=== PATIENT | male | born 1965 | race Two or more races ===

== ENCOUNTER 2021-01-10 05:00 | Day surgery (SDC) | payer OTHER | END 2021-01-10 16:00 | disposition home or self-care (01) | LOC: CIR.AMB 05:00 → LAB 07:57 → CIR.AMB 08:30 | PROVIDERS: ATTEND Specialist | DX: K40.90 Unilateral inguinal hernia, without obstruction or gangrene, not specified as recurrent (principal); D17.6 Benign lipomatous neoplasm of spermatic cord; Z20.822 Contact with and (suspected) exposure to COVID-19 ==

== ENCOUNTER 2024-01-18 09:20 | Emergency (ER) | payer OTHER ==
[~2024-01-18] VITALS: Ht 167.6 cm; Wt 78.5 kg
[2024-01-18] MEDS ORDERED: MECLIZINE HCL 25 MG TABLET PO ONE (10:00)
[2024-01-18] MEDS ORDERED: CEFTRIAXONE SODIUM 1,000 MG VIAL IV ONE (10:15)
[2024-01-18 11:23] LABS: HEMATOCRIT 39.4 % (39.0-48.0); HEMOGLOBIN 13.8 g/dL (13-16.00); MEAN CELL VOLUME 91.9 fL (80.0-100.00); MEAN CORPUSCULAR HEMOGLOBIN 32.2 pg (27.00-32.0); MEAN CORPUSCULAR HGB CONC 35.1 g/dl (32.0-36.0); PLATELET COUNT 197 K/uL (150-450); RED BLOOD COUNT 4.29 M/uL (4.00-6.00)
[2024-01-18 11:57] LABS: ALBUMIN 3.8 gm/dL (3.4-5.0); BILIRUBIN TOTAL 0.61 mg/dL (0.3-1.2); CALCIUM 9.5 mg/dL (8.5-10.1); CREATININE SERUM 0.71 mg/dL (0.70-1.30); GFR 113.17; GLOBULINA 3.7 G/DL (2.4-3.5); POTASSIUM 4.34 mEq/L (3.5-5.1); TOTAL PROTEIN 7.5 gm/dL (6.4-8.2)
[2024-01-18] MEDS ORDERED: AMOX-CLAV 875-1 EACH PO (12:50)
[2024-01-18] MEDS ORDERED: DRAMAMINE LESS25 MG PO (12:50)
== END 2024-01-18 13:11 | disposition home or self-care (01) ==
LOC: ER 09:20
PROVIDERS: General Practice
DX: R42 Dizziness and giddiness (principal); H66.90 Otitis media, unspecified, unspecified ear; Z88.6 Allergy status to analgesic agent